=== PATIENT | male | born 1945 | race Caucasian/White ===

== ENCOUNTER 2019-11-08 22:18 | Outpatient (CLI) | payer MEDICARE | END 2019-11-08 22:19 | disposition short-term general hospital (02) | LOC: EMS 22:18 | PROVIDERS: ATTEND Surgery | DX: I63.9 Cerebral infarction, unspecified (principal); R93.89 Abnormal findings on diagnostic imaging of other specified body structures | CPT/HCPCS: A0425; A0426 ==

== ENCOUNTER 2023-11-29 19:02 | Outpatient (CLI) | payer MEDICARE | END 2023-11-29 19:03 | disposition EMS.NT | LOC: EMS 19:02 | DX: Z03.89 Encounter for observation for other suspected diseases and conditions ruled out (principal) ==

== ENCOUNTER 2023-12-05 16:16 | Emergency (ER) | payer MEDICARE ==
[2023-12-05 16:47] LABS: BASOPHILS # (AUTO) 0.1 10^3/uL (0.0-0.1); BASOPHILS % (AUTO) 0.9 %; EOSINOPHILS # (AUTO) 0.3 10^3/uL (0.0-0.7); EOSINOPHILS % (AUTO) 4.1 %; HCT - HEMATOCRIT 42.9 % (42.0-52.0); HGB - HEMOGLOBIN 14.1 g/dL (14.0-18.0); LYMPHOCYTES # (AUTO) 1.2 10^3/uL (1.5-3.5); LYMPHOCYTES % (AUTO) 15.9 %; MEAN CORPUSCULAR HEMOGLOBIN 31.5 pg (27.0-31.0); MEAN CORPUSCULAR HGB CONC 32.9 g/dL (32.0-36.0); MEAN PLATELET VOLUME 10.7 fL (7.4-11.4); MONOCYTES # (AUTO) 0.9 10^3/uL (0.0-1.0); MONOCYTES % (AUTO) 11.2 %; NEUTROPHILS # (AUTO) 5.3 10^3/uL (1.5-6.6); NEUTROPHILS % (AUTO) 67.6 %; PLT - PLATELET COUNT 260 10^3/uL (130-450); RED BLOOD COUNT 4.47 10^6/uL (4.70-6.10); RED CELL DISTRIBUTION WIDTH 12.4 % (12.0-15.0); WHITE BLOOD COUNT 7.8 x10^3/uL (4.8-10.8)
[2023-12-05 17:03] LABS: ALBUMIN 4.1 g/dL (3.2-5.5); ALBUMIN/GLOBULIN RATIO 1.3 (1.0-2.2); BILIRUBIN,TOTAL 0.6 mg/dL (0.2-1.0); CALCIUM 9.4 mg/dL (8.5-10.3); CREATININE 0.9 mg/dL (0.6-1.3); POTASSIUM 3.7 mmol/L (3.5-4.5); TOTAL PROTEIN 7.3 g/dL (6.4-8.9)
--- NOTE | 2023-12-05 18:50 | ED Physician Documentation ---
History of Present Illness - Stated complaint Stated Complaint: BILAT LEG SWELLING - Chief complaint Chief Complaint: Wound - History obtained from History obtained from: Patient - History of Present Illness Timing: How many weeks ago (1) Pain level max: 0 Pain level now: 0 - Additonal information Additional information: Patient is an 78-year-old male who presents to the emergency department with swelling in his bilateral legs for the past several weeks. His daughter came up to visit him and brought him to the walk-in clinic, they referred him here for possible infection. No fevers. No chills. Not on any blood thinners. Not on diuretics. He generally sleeps in a recliner. He has not seen a telegraph operator for his feet. Quit smoking about 5 years ago. Patient is not on any medications currently. His doctor is in [place]. No history of heart failure. Review of Systems Constitutional: denies: Fever, Chills Cardiac: denies: Chest pain / pressure Respiratory: denies: Dyspnea, Cough, Wheezing GI: denies: Vomiting, Diarrhea Skin: denies: Rash Musculoskeletal: denies: Neck pain, Back pain Neurologic: denies: Headache PD PAST MEDICAL HISTORY - Past Medical History Past Medical History: Yes Neuro: CVA - Past Surgical History Past Surgical History: No - Present Medications Home Medications: Ambulatory Orders Medication Instructions Recorded Confirmed Amoxicillin/Potassium Clav 1 each PO BID 10 Days tablet 01/24/15 [Augmentin 875-125 Tablet] Doxycycline [Vibramycin] 100 mg PO BID #14 tablet 12/05/23 Furosemide [Lasix] 20 mg PO DAILY #7 tablet 12/05/23 cephALEXin [Keflex] 500 mg PO Q6H #28 cap 12/05/23 terbinafine HCL [Lamisil] 1 spray TP BID #125 ml 12/05/23 - Allergies Allergies/Adverse Reactions: Allergies Allergy/AdvReac Type Severity Reaction Status Date / Time Latex, Natural Rubber Allergy Intermediate skin Verified 12/05/23 16:25 peeling off - Social History Does the pt smoke?: No Smoking Status: Never smoker Does the pt drink ETOH?: Yes Does the pt have substance abuse?: No - Immunizations Immunizations are current?: Yes PD ED PE NORMAL - Vitals Vital signs reviewed: Yes - General General: Alert and oriented X 3, No acute distress - HEENT HEENT: Moist mucous membranes - Neck Neck: Supple, no meningeal sign - Cardiac Cardiac: RRR, Strong equal pulses - Respiratory Respiratory: No respiratory distress, Clear bilaterally - Abdomen Abdomen: Soft, Non tender, Non distended - Derm Derm: Warm and dry - Extremities Extremities: Other (mild edema B LE, dystrophic nails, skin breakdown between toes. mild erythema to the anterior ankles. No pain. NVI. No drainage. ) - Neuro Neuro: Alert and oriented X 3 - Psych Psych: Normal mood, Normal affect Results - Vitals Vitals: Vital Signs - 24 hr 12/05/23 12/05/23 16:25 19:23 Temperature 36.6 C 36.9 C Heart Rate 89 74 Respiratory 18 20 Rate Blood Pressure 153/90 H 147/80 H O2 Saturation 97 100 Oxygen O2 Source Room air - Labs Labs: Laboratory Tests 12/05/23 12/05/23 12/05/23 16:41 16:41 16:41 WBC 7.8 RBC 4.47 L Hgb 14.1 Hct 42.9 MCV 96.0 H MCH 31.5 H MCHC 32.9 RDW 12.4 Plt Count 260 MPV 10.7 Neut # (Auto) 5.3 Lymph # (Auto) 1.2 L Randall # (Auto) 0.9 Eos # (Auto) 0.3 Baso # (Auto) 0.1 Absolute Nucleated RBC 0.00 Nucleated RBC % 0.0 Sodium 137 Potassium 3.7 Chloride 104 Carbon Dioxide 24 Anion Gap 9.0 BUN 14 Creatinine 0.9 Estimated GFR (MDRD) 81 L Glucose 97 Calcium 9.4 Total Bilirubin 0.6 AST 22 ALT 18 Alkaline Phosphatase 60 B-Natriuretic Peptide 52 Total Protein 7.3 Albumin 4.1 Globulin 3.2 Albumin/Globulin Ratio 1.3 Lipase 10 L PD Medical Decision Making - ED course Complexity details: reviewed results, re-evaluated patient, considered differential, d/w patient ED course: Patient is an 78-year-old male who presents to the emergency department with bilateral lower extremity edema, likely secondary to dependent edema from standing and sleeping in a recliner. Has what appears to be bilateral tinea pedis, placed on terbinafine for this. There may be a mild cellulitis, will cover with antibiotics. Recommend that he follow-up with his PCP for further care. No significant lab abnormalities. Good pulses in the bilateral lower extremities. Recommend he follow-up with podiatry regarding his dystrophic nails. No fevers. No evidence of sepsis. Patient counseled regarding signs and symptoms for which I believe and urgent re-evaluation would be necessary. Patient with good understanding of and agreement to plan and is comfortable going home at this time This document was made in part using voice recognition software. While efforts are made to proofread this document, sound alike and grammatical errors may occur. Departure - Departure Disposition: 01 Home, Self Care Clinical Impression: Peripheral edema Cellulitis Qualifiers: Site of cellulitis: extremity Site of cellulitis of extremity: lower extremity Laterality: unspecified laterality Qualified Code(s): L03.119 - Cellulitis of unspecified part of limb Tinea pedis Qualifiers: Laterality: unspecified laterality Qualified Code(s): B35.3 - Tinea pedis Condition: Good Instructions: ED Infec Skin Cellulitis, ED Edema Legs Bilateral, ED Fungal Infec Athlete Foot Follow-Up: your,doctor in 1 week [Other] Dorene Maza DPM [Provider Admit Priv/Credential] - Kevin Boyle DPM [Physician No Access] - Prescriptions: cephALEXin [Keflex] 500 mg PO Q6H #28 cap terbinafine HCL [Lamisil] 1 spray TP BID #125 ml Furosemide [Lasix] 20 mg PO DAILY #7 tablet Doxycycline [Vibramycin] 100 mg PO BID #14 tablet Comments: Your prescriptions were sent to [facility] in [place]. As we discussed is important to elevate your legs at night to help with the fluid buildup in your feet. You do exhibit some signs of peripheral vascular disease and this should be evaluated further with your primary care provider. You appear to have a fungal infection in your feet, the terbinafine should help with this. You may have a slight secondary infection as well that we will place you on antibiotics for. Please follow-up with your doctor for further care. It is also important that you follow-up with the telegraph operator. Forms: PCP List Discharge Date/Time: 12/05/23 19:23
[2023-12-05] MEDS: FUROSEMIDE 20 MG TABLET PO STA (19:16)
[2023-12-05] MEDS: cephALEXin 250 MG CAPSULE PO STA (19:16)
[2023-12-05] MEDS: DOXYCYCLINE 100 MG TABLET PO STA (19:17)
[2023-12-05 19:33] VITALS: BP 147/80; O2SAT 100
== END 2023-12-05 19:23 | disposition home or self-care (01) ==
LOC: ED 16:16
DX: R60.0 Localized edema (principal); L03.116 Cellulitis of left lower limb; L03.115 Cellulitis of right lower limb; B35.3 Tinea pedis; Z87.891 Personal history of nicotine dependence; Z86.73 Personal history of transient ischemic attack (TIA), and cerebral infarction without residual deficits
CPT/HCPCS: 36415; 80053; 83690; 83880; 85025; 99283; 99284; A9270

== ENCOUNTER 2023-12-26 11:01 | Outpatient (CLI) | payer MEDICARE ==
[2023-12-26 11:17] LABS: BASOPHILS # (AUTO) 0.1 10^3/uL (0.0-0.1); BASOPHILS % (AUTO) 0.8 %; EOSINOPHILS # (AUTO) 0.4 10^3/uL (0.0-0.7); EOSINOPHILS % (AUTO) 4.2 %; HCT - HEMATOCRIT 46.6 % (42.0-52.0); HGB - HEMOGLOBIN 15.3 g/dL (14.0-18.0); LYMPHOCYTES # (AUTO) 1.5 10^3/uL (1.5-3.5); LYMPHOCYTES % (AUTO) 16.3 %; MEAN CORPUSCULAR HGB CONC 32.8 g/dL (32.0-36.0); MEAN CORPUSCULAR VOLUME 97.5 fL (80.0-94.0); MEAN PLATELET VOLUME 10.9 fL (7.4-11.4); MONOCYTES # (AUTO) 0.9 10^3/uL (0.0-1.0); MONOCYTES % (AUTO) 9.4 %; NEUTROPHILS # (AUTO) 6.4 10^3/uL (1.5-6.6); NEUTROPHILS % (AUTO) 69.1 %; PLT - PLATELET COUNT 286 10^3/uL (130-450); RED BLOOD COUNT 4.78 10^6/uL (4.70-6.10); RED CELL DISTRIBUTION WIDTH 12.5 % (12.0-15.0); WHITE BLOOD COUNT 9.3 x10^3/uL (4.8-10.8)
[2023-12-26 11:30] LABS: ALBUMIN 4.4 g/dL (3.2-5.5); ALBUMIN/GLOBULIN RATIO 1.2 (1.0-2.2); ALKALINE PHOSPHATASE 61 IU/L (42-121); ALT ALANINE AMINOTRANSFERASE 23 IU/L (10-60); AST ASPARTATE AMINOTRANSFERASE 24 IU/L (10-42); BILIRUBIN,TOTAL 0.4 mg/dL (0.2-1.0); BUN - BLOOD UREA NITROGEN 15 mg/dL (6-20); CALCIUM 9.3 mg/dL (8.5-10.3); CARBON DIOXIDE - CO2 31 mmol/L (21-32); CHLORIDE 102 mmol/L (101-111); CHOL/HDL RATIO 4.2 (<5.0); CHOLESTEROL 172 mg/dL; CREATININE 0.9 mg/dL (0.6-1.3); GFR - MDRD 81 (>89); GLUCOSE 106 mg/dL (74-104); HDL CHOLESTEROL 41 mg/dL; LDL CHOLESTEROL,CALCULATED 119 mg/dL; LDL/HDL RATIO 2.9 (<3.6); POTASSIUM 4.2 mmol/L (3.5-4.5); SODIUM 137 mmol/L (135-145); TRIGLYCERIDES 62 mg/dL; VLDL CHOLESTEROL 12 mg/dL
[2023-12-26 11:45] LABS: THYROID STIMULATING HORMONE 4.47 uIU/mL (0.34-5.60)
[2023-12-26 11:47] LABS: BILIRUBIN,URINE NEGATIVE (NEGATIVE); GLUCOSE, URINE (UA) NEGATIVE (NEGATIVE); KETONES,URINE (UA) NEGATIVE (NEGATIVE); LEUKOCYTE ESTERASE, URINE NEGATIVE (NEGATIVE); NITRITE,URINE NEGATIVE (NEGATIVE); OCCULT BLOOD,URINE TRACE-INTA (NEGATIVE); PROTEIN,URINE NEGATIVE (NEGATIVE); UROBILINOGEN,URINE 0.2 (NORMAL) E.U./dL (NORMAL)
[2023-12-26 11:52] LABS: CLARITY,URINE CLEAR (CLEAR)
[2023-12-26 12:57] LABS: BACTERIA,URINE Few /HPF (None Seen); MUCUS,URINE Moderate Strands; SQUAMOUS EPITHELIAL CELL,UR RARE Squamous (<= Few); WBC,URINE 0-3 /HPF (0-3)
== END 2023-12-26 11:02 | disposition home or self-care (01) ==
LOC: LAB 11:01
PROVIDERS: ATTEND Nurse Practitioner Family
DX: I10 Essential (primary) hypertension (principal); L03.119 Cellulitis of unspecified part of limb; R32 Unspecified urinary incontinence; Z12.5 Encounter for screening for malignant neoplasm of prostate
CPT/HCPCS: 36415; 80053; 80061; 81001; 84443; 85025; G0103; 83721; 84153; 87086